=== PATIENT | female | born 1985 | race Hispanic/Latino ===

== ENCOUNTER 2023-04-30 16:30 | Outpatient (CLI) | payer BC ==
[2023-04-30 17:14] LABS: #Basophils 0.1 10x3/uL (0.0-0.2); #Eosinphils 0.4 10x3/uL (0.0-0.5); #Monocytes 0.5 10x3/uL (0.0-1.1); #Neutrophils 5.3 10x3/uL (1.5-8.4); %Basophils 0.6 % (0.0-2.0); %Eosinophils 3.8 % (0.0-6.0); %Lymphocytes 39.5 % (18.0-47.0); %Monocytes 4.6 % (0.0-10.0); %Neutrophils 51.3 % (40.0-75.0); Hemoglobin 11.9 g/dL (12.0-15.5); Mean Corpuscular HGB CONC 33.3 g/dL (32.0-36.0); Mean Corpuscular Hemoglobin 30.7 pg (27.0-33.0); Mean Platelet Volume 10.9 fl (7.4-10.4); Platelet Count 289 10x3/uL (150-450); RBC Distribution Width 13.9 % (11.5-14.5); Red Blood Cell (RBC) Count 3.88 10x6/uL (3.90-5.03); White Blood Cell (WBC) Count 10.3 10x3/uL (3.5-10.5)
[2023-04-30 17:38] LABS: BHCG - Serum Negative (NEGATIVE); Pregs Control Background? CLEAR/WHITE (CLR/WHITE); Pregs Control Bar Appear? YES (CONTROL BAR)
[2023-04-30 17:42] LABS: ALT (SGPT) 8 U/L (8-55); AST (SGOT) 14 U/L (5-34); Albumin 4.5 g/dL (3.5-5.0); Alkaline Phosphatase 91 U/L (40-110); Anion Gap 15 mmol/L (10-20); BUN (Urea Nitrogen) 19 mg/dL (7.0-18.7); Bilirubin, Total 0.2 mg/dL (0.2-1.2); Calc. Creatinine Clearance 0 mL/min (70-130); Calcium 9.6 mg/dL (7.8-10.44); Carbon Dioxide 22 mmol/L (22-29); Chloride 105 mmol/L (98-107); Estimated GFR 113; Globulin 3.6 g/dL (2.4-3.5); Glucose 120 mg/dL (70-105); Magnesium 1.8 mg/dL (1.6-2.6); Protein, Total 8.1 g/dL (6.0-8.3); Sodium 138 mmol/L (136-145)
[2023-04-30 18:03] LABS: Free T4 (Free Thyroxine) 0.91 ng/dL (0.70-1.48); Thyroid Stimulating Hormone 1.1482 uIU/mL (0.35-4.94)
== END 2023-04-30 16:31 | disposition home or self-care (01) ==
LOC: LABBT 16:30
PROVIDERS: ATTEND Surgery
DX: Z01.812 Encounter for preprocedural laboratory examination (principal); K43.9 Ventral hernia without obstruction or gangrene
CPT/HCPCS: 80053; 83735; 84439; 84443; 84703; 85025

== ENCOUNTER 2023-05-05 08:01 | Day surgery (SDC) | payer BC ==
[2023-04-30 16:49] VITALS: BMI 25.7
[2023-05-05] MEDS ORDERED: fentaNYL 50 mcg/mL 1 mL Vial ONE ×4 (08:45→15:12)
[2023-05-05] MEDS ORDERED: Bupivacaine PF 0.5% 30 ML VIAL ONE (08:45)
[2023-05-05] MEDS ORDERED: Midazolam HCl 2 mg/2 ml Vial ONE (08:45)
[2023-05-05] MEDS ORDERED: Bupivacaine HCl 0.5%/Epinephrine 1:200,000/PF 30 ml Vial ONE (10:05)
[2023-05-05] MEDS ORDERED: fentaNYL PF 100 MCG/2 ML SYRINGE ONE (10:44)
[2023-05-05] MEDS ORDERED: SUGAMMADEX SODIUM 200 MG/2 ML VIAL ONE (10:44)
[2023-05-05] MEDS ORDERED: Propofol 500 MG/50 ML VIAL ONE ×2 (10:44→13:09)
[2023-05-05] MEDS ORDERED: Sodium Chloride 0.9% 100 ML ONE (10:54)
[2023-05-05] MEDS ORDERED: CEFAZOLIN 2 GM VIAL ONE (10:54)
[2023-05-05] MEDS ORDERED: Lidocaine 1% PF 5 ML VIAL ONE (11:05)
[2023-05-05] MEDS ORDERED: PROPOFOL 200 MG/20 ML VIAL ONE (11:05)
[2023-05-05] MEDS ORDERED: Dexamethasone 20 MG/5 ML VIAL ONE (11:05)
[2023-05-05] MEDS ORDERED: ePHEDrine Sulfate 50 MG/10 ML VIAL ONE (11:05)
[2023-05-05] MEDS ORDERED: PHENYLEPHRINE-NS 100 MCG/ML 10 ML SYRINGE ONE (11:05)
[2023-05-05] MEDS ORDERED: Rocuronium Bromide 10 MG/ML (10ML VIAL) ONE (11:05)
[2023-05-05] MEDS ORDERED: Rocuronium Bromide 50 MG/5 ML VIAL ONE (13:09)
[2023-05-05] MEDS ORDERED: Phenylephrine 10 MG/ML VIAL ONE (13:09)
[2023-05-05] MEDS ORDERED: HYDROcodone/Acetaminophen 5/325 mg Tablet ONE (17:24)
== END 2023-05-05 18:36 | disposition home or self-care (01) ==
LOC: SDC 08:01
PROVIDERS: ATTEND Surgery
PROC: 0WUF47Z Supplement Abdominal Wall with Autologous Tissue Substitute, Percutaneous Endoscopic Approach (ICD-10-PCS; principal; 2023-05-05)
DX: K43.9 Ventral hernia without obstruction or gangrene (principal); Z87.59 Personal history of other complications of pregnancy, childbirth and the puerperium; Z88.1 Allergy status to other antibiotic agents; Z91.038 Other insect allergy status; Z79.899 Other long term (current) drug therapy
CPT/HCPCS: J1100; J2250; J2370; J2704; J3010; J3490; S0020